=== PATIENT | female | born 1990 | race African-American/Black ===

== ENCOUNTER 2025-04-27 11:38 | Emergency (ER) | payer MEDICAID, SELFPAY ==
[2025-04-27] MEDS ORDERED: Boostrix 0.5 ML (Tdap) VIAL (>/=7 yrs of age) ONE (12:11)
[2025-04-27 13:21] LABS: HIV (1/2) Antibody/Antigen Non-Reactive (NonReactive); HIV 1/2 INDEX 0.11 S/CO (<1.00)
[2025-04-27 17:53] LABS: HBSAB Concentration Less than 8.00 mIU/mL; Hep C IgG Ab NONREACTIVE S/CO (NonReactive); Hep C Index 0.09 S/CO (0-0.79)
== END 2025-04-27 12:47 | disposition home or self-care (01) ==
LOC: CSHERS 11:38
DX: S01.451A Open bite of right cheek and temporomandibular area, initial encounter (principal); Z23 Encounter for immunization; Y04.1XXA Assault by human bite, initial encounter
CPT/HCPCS: 36415; 86706; 86803; 87389; 90471; 90715